=== PATIENT | female | born 1975 | race Caucasian/White ===

== ENCOUNTER 2017-06-20 13:44 | Emergency (ER) | payer OTHER ==
--- NOTE | 2017-06-20 14:28 | UC ---
Ear Complaint HPI - HPI Summary HPI Summary: Pt presents with left ear pain that began 2 days ago. Getting progressively worse. Now having tragus pain and some post auricular pain. Denies hearing changes, fever, chills, sore throat, cough, SOB, chest pain. - History of Current Complaint Chief Complaint: UCEar Stated Complaint: EAR COMPLAINT Time Seen by Provider: 06/20/17 14:27 Hx Obtained From: Patient Hx Last Menstrual Period: 05/28/17 Onset/Duration: Sudden Onset Severity Initially: Mild Severity Currently: Moderate Pain Intensity: 6 Pain Scale Used: 0-10 Numeric - Allergies/Home Medications Allergies/Adverse Reactions: Allergies Allergy/AdvReac Type Severity Reaction Status Date / Time No Known Allergies Allergy Verified 07/02/15 13:28 PMH/Surg Hx/FS Hx/Imm Hx - Additional Past Medical History Additional PMH: ADHD Previously Healthy: Yes Cardiovascular History: Hypertension Psychological History: Anxiety - Surgical History Surgical History: Yes Surgery Procedure, Year, and Place: L4 L[place] [facility] [place] Family History Known Family History: Positive: Hypertension - Social History Occupation: Employed Full-time Lives: With Family Alcohol Use: None Substance Use Type: None Smoking Status (MU): Former Smoker Type: Cigarettes Amount Used/How Often: 1/10 PPD Length of Time of Smoking/Using Tobacco: 7 Years Have You Smoked in the Last Year: No When Did the Patient Quit Smoking/Using Tobacco: ~1999 - Immunization History Most Recent Influenza Vaccination: December 2014 Review of Systems Constitutional: Negative Skin: Negative Eyes: Negative ENT: Ear Ache Respiratory: Negative Cardiovascular: Negative Gastrointestinal: Negative Neurovascular: Negative Musculoskeletal: Negative Neurological: Negative Psychological: Negative All Other Systems Reviewed And Are Negative: Yes Physical Exam - Summary Physical Exam Summary: GENERAL: NAD. WDWN. No pain distress. SKIN: No rashes, sores, ulcers, masses, lesions. HEENT: Head: AT/NC Eyes: EOM intact. Conjunctiva clear without inflammation or discharge. Ears: Hearing grossly normal. Left TM with mild erythema/bulging and ear canal edema. Mild tragus and auricular TTP. Right: TMs intact, no bulging, erythema, or edema. Nose: Nasal mucosa pink and moist. NTTP maxillary and frontal sinus. Throat: Posterior oropharynx without exudates, erythema, or tonsillar enlargement. Uvula midline. NECK: Supple. Nontender. No lymphadenopathy. CHEST: CTAB. No r/r/w. No accessory muscle use. Breathing comfortably and in no distress. CV: RRR. Without m/r/g. Pulses intact. Brisk cap refill. NEURO: Alert. CN II-XII grossly intact. PSYCH: Age appropriate behavior. Triage Information Reviewed: Yes Vital Signs: Initial Vital Signs Temp 99.4 F 06/20/17 14:16 Pulse 91 06/20/17 14:16 Resp 16 06/20/17 14:16 BP 120/91 06/20/17 14:16 Pulse Ox 100 06/20/17 14:16 Ear Complaint Course/Dx - Course Course Of Treatment: left ear otitis media - amoxicillin - Differential Dx/Diagnosis Provider Diagnoses: Left otitis media Discharge - Sign-Out/Discharge Documenting (check all that apply): Discharge/Admit/Transfer - Discharge Plan Condition: Stable Disposition: HOME Prescriptions: Amoxicillin PO (*) [Amoxicillin 500 MG CAP*] 500 mg PO Q12H #14 cap Patient Education Materials: Ear Infection (ED) Referrals: Bela Fernandes MD [Primary Care Provider] - Additional Instructions: If you develop a fever, shortness of breath, chest pain, new or worsening symptoms - please call your PCP or go to the ED. - Billing Disposition and Condition Condition: STABLE Disposition: HOME
[2017-06-20 14:33] VITALS: BP 120/91
== END 2017-06-20 14:38 | disposition home or self-care (01) ==
LOC: UCCORT 13:44
DX: H66.92 Otitis media, unspecified, left ear (principal); Z87.891 Personal history of nicotine dependence
CPT/HCPCS: 99212; G0463

== ENCOUNTER 2018-09-19 11:18 | Emergency (ER) | payer OTHER ==
--- OUTSIDE RECORDS SUMMARY | 2018-09-19 12:13 | XMS REPORT | Continuity of Care Document ---
:1975 External Reference #:[id number] Author Name Fabian Cantu Care Team Providers Name Role Phone Bela Fernandes M.D. Primary Care Physician Unavailable Payers Date Identification Numbers Payment Provider Subscriber Policy Number: [id number] [employer] Ppo/Pos/Epo/Nap Liseth Smith PayID: [id number] [address] [place] [address] Problems Active Problems Provider Date Myopia Bela Hair O.D. Onset: 07/19/2018 Regular astigmatism Bela Hair O.D. Onset: 07/19/2018 Family History Date Family Member(s) Observation Comments General No Current Problems Father No Current Problems Mother Breast Cancer Social History Type Date Description Comments Sex Unknown Marital Status Single Occupation Advertising Work Status Full-Time Employment ETOH Use Denies alcohol use Tobacco Use Start: Unknown End: Unknown Patient is a former smoker Recreational Drug Use Denies Drug Use Smoking Status Reviewed: 07/19/18 Patient is a former smoker Allergies, Adverse Reactions, Alerts Description No Known Drug Allergies Medications Active Medications SIG Qnty Indications Ordering Provider Date Wellbutrin XL Unknown 300mg Tablets ER 24HR Zoloft 25mg Unknown Tablets Propranolol HCL Unknown 10mg Tablets Procedures Date Code Description Status 07/30/2018 104 Insertion And Removal Training Completed 07/30/2018 102 Level 2 Fit RGP/Soft Toric/Bifocal/Monovision/Extended Completed Wear 07/19/2018 03118 Determination Of Refractive State Completed 07/19/2018 75524 New Patient Comprehensive Exam Completed 04/24/2005 82347 Cancelled Appointment Completed 04/05/2005 13437 Rescheduled Appointment Completed 03/27/2005 10124 Rescheduled Appointment Completed 03/15/2005 15995 Determination Of Refractive State Completed 03/15/2005 53823 Est Patient Comprehensive Exam Completed 03/15/2005 102 Level 2 Fit RGP/Soft Toric/Bifocal/Monovision/Extended Completed Wear 03/03/2005 48664 Rescheduled Appointment Completed Plan of Treatment Future Appointment(s):08/16/2019 11:30 am - Bela Hair O[facility] at [facility]
--- OUTSIDE RECORDS SUMMARY | 2018-09-19 12:13 | XMS REPORT | Continuity of Care Document ---
:1975 External Reference #:[id number] Author Name Bela Hair O.D. Address [address] [place] [address] Care Team Providers Name Role Phone Bela Fernandes M.D. Primary Care Physician Unavailable Payers Date Identification Numbers Payment Provider Subscriber Policy Number: [id number] [employer] Ppo/Pos/Epo/Nap Liseth Smith PayID: [id number] [address] [place] [address] Problems Active Problems Provider Date Myopia Bela [...] 2 Fit RGP/Soft Toric/Bifocal/Monovision/Extended Completed Wear 07/19/2018 37732 Determination Of Refractive State Completed 07/19/2018 64335 New Patient Comprehensive Exam Completed 04/24/2005 96743 Cancelled Appointment Completed 04/05/2005 97971 Rescheduled Appointment Completed 03/27/2005 44645 Rescheduled Appointment Completed 03/15/2005 09282 Determination Of Refractive State Completed 03/15/2005 83441 Est Patient Comprehensive Exam Completed 03/15/2005 102 Level 2 Fit RGP/Soft Toric/Bifocal/Monovision/Extended Completed Wear 03/03/2005 35031 Rescheduled Appointment Completed Plan of Treatment Future Appointment(s):09/25/2018 8:30 am - Bela Hair O.D. at [facility], 08/16/2019 11:30 am - Bela Hair O.D[facility] at [facility]
[2018-09-19 12:49] VITALS: BP 123/84
--- NOTE | 2018-09-19 13:11 | UC ---
Ear Complaint HPI - HPI Summary HPI Summary: 43 year old female with no PMH presents with increased right ear pain, no drainage, no fever, chills, no sinus pain, pressure. no recent swimming, does get water in ears during showers. Pain internal, worse with pulling ear. - History of Current Complaint Chief Complaint: UCEar Stated Complaint: RIGHT EAR CONCERN Time Seen by Provider: 09/19/18 12:56 Hx Obtained From: Patient Hx Last Menstrual Period: 08/31/18 ?: No Onset/Duration: Sudden Onset Severity Initially: Mild Severity Currently: Mild Pain Intensity: 4 Pain Scale Used: 0-10 Numeric Associated Signs/Symptoms: Negative: Foreign Body Sensation, Trauma to Ear - Allergies/Home Medications Allergies/Adverse Reactions: Allergies Allergy/AdvReac Type Severity Reaction Status Date / Time No Known Allergies Allergy Verified 09/19/18 12:44 Home Medications: Home Medications Bupropion XL* [Wellbutrin XL *] 300 mg PO DAILY 09/19/18 [History Confirmed ] PMH/Surg Hx/FS Hx/Imm Hx Previously Healthy: Yes - Surgical History Surgical History: Yes Surgery Procedure, Year, and Place: L4 L5 Discectomy, 2004, [facility] - Family History Known Family History: Positive: Hypertension, Non-Contributory - Social History Alcohol Use: None Substance Use Type: None Smoking Status (MU): Former Smoker Type: Cigarettes Amount Used/How Often: 1/10 PPD Length of Time of Smoking/Using Tobacco: 7 Years Have You Smoked in the Last Year: No When Did the Patient Quit Smoking/Using Tobacco: ~2000 - Immunization History Most Recent Influenza Vaccination: December 2014 Review of Systems All Other Systems Reviewed And Are Negative: Yes Constitutional: Positive: Negative ENT: Positive: Ear Ache Respiratory: Positive: Negative Neurological: Positive: Negative. Negative: Headache Is Patient Immunocompromised?: No Physical Exam Triage Information Reviewed: Yes Appearance: Well-Appearing, No Pain Distress, Well-Nourished Vital Signs: Initial Vital Signs Temp 98.8 F 09/19/18 12:45 Pulse 70 09/19/18 12:45 Resp 15 09/19/18 12:45 BP 123/84 09/19/18 12:45 Pulse Ox 97 09/19/18 12:45 Vital Signs Reviewed: Yes ENT: Positive: Hearing grossly normal, TMs normal, Other - flaking skin with erythema noted at distal ear canal in 12-3 position, no drainage noted, no wounds. TM normal. Negative: Nasal congestion, TM bulging, TM dull, TM red, Sinus tenderness Neck: Positive: Supple, Nontender, No Lymphadenopathy. Negative: Nuchal Rigidity, Enlarged Nodes @ Neurological Exam: Normal Psychological Exam: Normal Skin Exam: Normal Ear Complaint Course/Dx - Course Course Of Treatment: otitis externa, drops given, apply to area with Q-tip after using drops in ear to ensure reaches affected area - Differential Dx/Diagnosis Differential Diagnosis/HQI/PQRI: Otitis Externa, Otitis Media Provider Diagnosis: Otitis externa Discharge - Sign-Out/Discharge Documenting (check all that apply): Patient Departure All imaging exams completed and their final reports reviewed: No Studies - Discharge Plan Condition: Good Disposition: HOME Prescriptions: Neomyc/Polym/HC 1% OTIC SUSP* [Cortisporin Otic Susp 1%*] 4 drop RIGHT EAR QID # 1 btl Patient Education Materials: Otitis Externa (ED) Referrals: Bela Fernandes MD [Primary Care Provider] - Additional Instructions: - Otitis externa in small, outpouched area of ear canal- use drops in ear canal , soak Q-tip and apply to tender area to ensure covering area - Continue to use until symptom free x 24 hours - Return if no improvement within 2-3 days - GO to ER with neck pain, fever, chills, headache - Billing Disposition and Condition Condition: GOOD Disposition: Home
== END 2018-09-19 13:20 | disposition home or self-care (01) ==
LOC: UCCORT 11:18
DX: H60.91 Unspecified otitis externa, right ear (principal); Z87.891 Personal history of nicotine dependence
CPT/HCPCS: 99212; G0463